=== PATIENT | male | born 1985 | race Caucasian/White ===

== ENCOUNTER → 2018-06-27 | Outpatient (CLI) | payer BC ==
[~2018-06-27] MED LIST: CEPHALEXIN500 M1 PO; NORCO 325 MG-51 TAB PO
== END ==
LOC: COL.RAD 09:00
DX: M50.11 Cervical disc disorder with radiculopathy, high cervical region (principal); M48.02 Spinal stenosis, cervical region; G95.29 Other cord compression

== ENCOUNTER → 2019-06-02 | Outpatient (CLI) | payer BC | LOC: MHCPAIN 12:16 | DX: G89.29 Other chronic pain (principal); M54.12 Radiculopathy, cervical region; M47.812 Spondylosis without myelopathy or radiculopathy, cervical region | CPT/HCPCS: G0463 ==

== ENCOUNTER → 2019-06-05 | Outpatient (CLI) | payer BC | LOC: MHCPAIN 10:52 | DX: M47.812 Spondylosis without myelopathy or radiculopathy, cervical region (principal); M54.12 Radiculopathy, cervical region | CPT/HCPCS: J1100; Q9967 ==

== ENCOUNTER → 2019-06-18 | Outpatient (CLI) | payer BC | LOC: MHCPAIN 08:21 | DX: G89.29 Other chronic pain (principal); M54.12 Radiculopathy, cervical region; R51 Headache; M47.812 Spondylosis without myelopathy or radiculopathy, cervical region | CPT/HCPCS: G0463 ==

== ENCOUNTER → 2019-06-23 | Outpatient (CLI) | payer BC | LOC: MHCPAIN 12:07 | DX: M47.812 Spondylosis without myelopathy or radiculopathy, cervical region (principal); M54.12 Radiculopathy, cervical region | CPT/HCPCS: J1100; Q9967 ==

== ENCOUNTER → 2019-07-08 | Outpatient (CLI) | payer BC | LOC: MHCPAIN 08:19 | DX: G89.29 Other chronic pain (principal); M54.12 Radiculopathy, cervical region; M47.812 Spondylosis without myelopathy or radiculopathy, cervical region | CPT/HCPCS: G0463 ==

== ENCOUNTER → 2019-07-25 | Outpatient (CLI) | payer BC | LOC: COL.RAD 07:30 | DX: M50.11 Cervical disc disorder with radiculopathy, high cervical region (principal) ==